=== PATIENT | male | born 1970 | race Caucasian/White ===

== ENCOUNTER 2020-11-13 04:46 | Emergency (ER) | payer MEDICAID ==
[~2020-11-13] VITALS: Ht 177.8 cm; Wt 85.4 kg
[2020-11-13] MEDS ORDERED: VANCOMYCIN PER PHARMACY MC ONE (05:30)
[2020-11-13] MEDS ORDERED: VANCOMYCIN 2,100 MG in SODIUM CHLORIDE 0.9% 500 ML IV ONE (05:30)
[2020-11-13] MEDS ORDERED: SODIUM CHLORIDE 0.9% 1,000ML IVBOLUS ONE (05:30)
[2020-11-13 05:52] LABS: ALBUMIN 3.3 g/dL (3.4-5.0); ANION GAP 3 mmol/L (5-15); BASOPHILS % (AUTO) 1 % (0-1); CALCIUM 8.5 mg/dL (8.5-10.1); CHLORIDE 109 mmol/L (98-107); CREATININE 0.95 mg/dL (0.7-1.3); EOSINOPHILS % (AUTO) 4 % (1-7); LYMPHOCYTES % (AUTO) 15 % (22-44); MEAN CORPUSCULAR HEMOGLOBIN 32.4 pg (27.5-34.5); MEAN CORPUSCULAR HGB CONC 35.3 g/dL (33.2-36.2); MEAN PLATELET VOLUME 8.8 fL (7.4-10.4); MONOCYTES % (AUTO) 11 % (2-9); NEUTROPHILS % (AUTO) 70 % (42-75); PLATELET COUNT 262 x10^3/uL (130-400); RED BLOOD COUNT 4.31 x10^6/uL (4.38-5.82); RED CELL DISTRIBUTION WIDTH 13.9 % (9.4-14.8)
[2020-11-13] MEDS ORDERED: KETOROLAC 30 MG/1 ML ONE (06:00)
[2020-11-13] MEDS ORDERED: KETOROLAC 15 MG/1ML IVPush ONE (06:00)
[2020-11-13] MEDS ORDERED: BACITRACIN OINT 500U/GM, 15 GM TP PRN (06:30)
--- NOTE | 2020-11-13 06:49 | NUR ---
Report to Ene NELSON
--- NOTE | 2020-11-13 07:05 | NUR ---
WOUND CARE PERFORMED, PATIENT SITTING IN GURNEY ON PHONE, ESTEPHANIAN, AMYS, CALL LIGHT WITHIN REACH. [facility].
--- NOTE | 2020-11-13 08:40 | NUR ---
PATIENT SITTING IN [facility] STILL RUNNING, WAITING FOR [facility] TO FINISH AND PATIENT WILL BE DISCHARGED.
[2020-11-13 09:10] VITALS: BP 136/78
--- NOTE | 2020-11-13 09:38 | NUR ---
IV removed with tip intact. Patient given discharge instructions prescriptions and they have confirmed that they understand the instructions. Patient ambulatory with steady gait. NAD, all questions answered appropriately, denies additional needs at this time. No personal belongings left in room after discharge.
== END 2020-11-13 09:39 | disposition home or self-care (01) ==
LOC: ED 07:12
DX: L03.115 Cellulitis of right lower limb (principal); L89.899 Pressure ulcer of other site, unspecified stage; R00.0 Tachycardia, unspecified
CPT/HCPCS: 36415; 80048; 82040; 85025; 96361; 96365; 96366; 96375; 99284; J1885; J3370; J7030; J7040

== ENCOUNTER 2020-12-18 21:11 | Emergency (ER) | payer MEDICAID ==
[~2020-12-18] VITALS: Ht 177.8 cm; Wt 79.3 kg
[2020-12-18 21:17] VITALS: BP 138/85
== END 2020-12-18 22:30 | disposition left against medical advice (07) ==
LOC: ED 21:40
DX: R10.32 Left lower quadrant pain (principal)
CPT/HCPCS: 99281